=== PATIENT | male | born 1960 | race Caucasian/White ===

== ENCOUNTER 2017-01-12 11:34 | Inpatient (IN) | payer MEDICARE, MEDICAID ==
[2017-01-12] MEDS ORDERED: Sodium Chloride 0.9% 10 ML Syringe FLUSH PRN (11:44)
[2017-01-12 13:01] LABS: CHLORIDE,CL 109 mmol/L (98-107); SODIUM,NA 145 mmol/L (136-145)
[2017-01-12] MEDS ORDERED: Levofloxacin/Dextrose 5%-Water 500 MG in Premix Bag 1 BAG IV ONE (13:39)
[2017-01-12] MEDS ORDERED: metroNIDAZOLE/Normal Saline 500 MG in Premix Bag 1 BAG IV ONE (13:39)
[2017-01-12] MEDS ORDERED: Enoxaparin 40 MG/0.4 ML Syringe SUBCUT SCH (16:00)
[2017-01-12] MEDS ORDERED: Acetaminophen 325 MG Tab PO PRN (16:29)
[2017-01-12] MEDS ORDERED: [UNRECOGNIZED DRUG - OTHER] PO PRN (16:29)
[2017-01-12] MEDS ORDERED: Sodium Chloride 0.65% Nasal Spray 45 ML Bottle NASBOTH PRN (16:29)
[2017-01-12] MEDS ORDERED: guaiFENesin 100 MG/5 ML Soln 10 ML UD Cup PO PRN (16:29)
[2017-01-12] MEDS ORDERED: Simethicone 80 MG Tab.Chew PO PRN (16:29)
[2017-01-12] MEDS ORDERED: Loperamide 2 MG Cap PO SCH (16:30)
[2017-01-12] MEDS: LORazepam 0.5 MG Tab PO SCH (18:08)
[2017-01-12] MEDS: Albuterol/Ipratropium 3.0-0.5 MG/3 ML Neb Soln NEB SCH (18:08)
[2017-01-12] MEDS: metroNIDAZOLE/Normal Saline 500 MG in Premix Bag 1 BAG IV SCH (19:50)
[2017-01-12] MEDS ORDERED: TRAZODONE HCL 200 MG PO SCH (20:00)
[2017-01-12] MEDS ORDERED: PILOCARPINE HCL 5 MG PO SCH (20:00)
[2017-01-12] MEDS: Topiramate 50 MG Tab PO SCH (20:04)
[2017-01-12] MEDS: Donepezil 10 MG Tab PO SCH (20:05)
[2017-01-12] MEDS: OLANZapine 10 MG Tab PO SCH (20:06)
[2017-01-12] MEDS: Montelukast 10 MG Tab PO SCH (20:06)
[2017-01-12] MEDS: traZODone 50 MG Tab PO SCH (20:07)
[2017-01-12] MEDS: Loratadine 10 MG Tab PO SCH (20:07)
[2017-01-12] MEDS: Acetaminophen 500 MG Tab PO SCH (20:08)
[2017-01-12] MEDS: Enoxaparin 40 MG/0.4 ML Syringe SUBCUT SCH (20:10)
--- NOTE | 2017-01-12 23:16 | HP ---
REASON FOR ADMISSION: Suspected aspiration. HISTORY OF PRESENT ILLNESS: A 56-year-old white male, resident of the Special Care Unit at the [facility], was found by staff to be refusing to ambulate, cold and clammy to touch, and shaky. Family who is with him when I assessed him stated he had collapse and was cold and clammy and not feeling well. The patient is nonverbal due to Down syndrome. He is unable to answer any questions. History taken from longterm records and family members were present. The patient has a history of aspiration pneumonia. He was reported to be in the hospital [facility] 5 years ago in the ICU for aspiration pneumonia and that led his admission to the Special Care Unit at the [facility]. PAST MEDICAL HISTORY: His other diagnoses include COPD, congenital mitral insufficiency, allergic rhinitis, Down syndrome, generalized anxiety disorder, major depressive disorder, obsessive-compulsive disorder, Alzheimer's, chronic sinusitis, dementia, dysphagia, GERD, impulse disorder, obesity, orthostatic hypotension, and unspecified convulsions. MEDICATIONS: As listed from the [facility] are saline nasal spray p.r.n., ranitidine 150 mg daily, Zyprexa 10 mg b.i.d., Tylenol p.r.n., trazodone 200 mg at bedtime, triamcinolone 0.1% b.i.d. p.r.n., topiramate 100 mg daily, pilocarpine 5 mg t.i.d., Singulair 10 mg at bedtime, guaifenesin as directed, potassium 20 mEq b.i.d., multivitamin daily, fish oil daily, furosemide 20 mg daily, simethicone 80 mg q.i.d. p.o., DuoNeb daily, vitamin D complex, loratadine 10 mg daily, calcium with vitamin D 1 b.i.d., lorazepam 0.5 mg b.i.d., Aricept 10 mg daily, Imodium as directed, Flonase nasal spray daily, Chloraseptic throat spray q.4 h. p.r.n., clotrimazole topical, Biotene oral balance b.i.d. p.r.n., bacitracin p.r.n. ALLERGIES: Penicillin. Family reports that they are unaware of what the reaction was, as he was about 4 years old when he had the reaction. SOCIAL HISTORY: He has had exposure to smoking during his life. REVIEW OF SYSTEMS: Not obtainable as the patient is nonverbal. PHYSICAL EXAMINATION: General: He is alert, lying in bed. Vital Signs: Temperature 97.2, pulse is 60, BP is 98/55, respiratory rate 18, and O2 sats 97% on room air. HEENT: Pupils unremarkable. TMs negative. Throat; tongue is unremarkable. Neck: Supple. No adenopathy noted. Heart: Regular rate and rhythm. Lungs: Occasional wheeze and rhonchi. Abdomen: Obese, nontender. No masses palpable. No hepatosplenomegaly noted. Extremities: Warm and dry. No edema noted. Neurologic: Unable to follow commands. LABORATORY DATA: White count 11.1, hemoglobin 14.7. INR 0.9. Potassium 5.3, sodium 145, and creatinine 1.2. Lactic acid elevated at 2.9. LFTs are normal. Troponin was negative. CK was negative. Albumin low at 3.1. Chest x-ray, portable, no acute findings. The patient was assessed by the ED provider, BEE Virgen. He was administered Levaquin and Flagyl for coverage of presumed aspiration pneumonia. Medications shows because of his penicillin allergy. These were given prior to arrival on the floor. ASSESSMENT: 1. Presumed aspiration pneumonia. 2. Down syndrome. 3. Chronic obstructive pulmonary disease. PLAN: The patient will be placed on acute care status, anticipate 48- to 72- hour stay. We will continue Levaquin 500 mg q.24 hours and metronidazole 500 mg q.8 hours for coverage for aspiration pneumonia. We will increase his DuoNeb to q.6 hours. Continue on most of his home medications except hold all of his topicals and some of his duplicate guaifenesin orders. Repeat lab in the morning. Monitor his O2 sats. Family requests DNR/DNI status. Dr. Mary Ann Madera is his primary provider and she will assume care in the morning again. FM: 01/12/2017 16:51:10 MODL: 01/12/2017 17:58:34 /[id number]
--- NOTE | 2017-01-13 00:07 | ER ---
Date of Service: 01/12/2017 SUBJECTIVE: Jer presents to the emergency room via ambulance. The patient is a resident at the [facility] and suffers from severe Down syndrome. Family states that the patient has been experiencing increased weakness and has been ambulating less. They also noted that the patient was cyanotic around the lips and appeared to be experiencing some increased work of breathing. The patient has a history of aspiration pneumonia. Staff states that symptoms started earlier today. PAST MEDICAL HISTORY: 1. Down syndrome. 2. COPD. 3. Congenital mitral valve insufficiency. 4. Allergic rhinitis. 5. Generalized anxiety disorder. 6. Major depressive disorder. 7. Obsessive-compulsive disorder. 8. Alzheimer's. 9. Chronic sinusitis. 10.Dementia. 11.Dysphagia. 12.GERD. 13.Impulse disorder. 14.Obesity. 15.History of orthostatic hypotension. 16.History of seizure disorder. MEDICATIONS: 1. Ranitidine 150 mg daily. 2. Zyprexa 10 mg p.o. b.i.d. 3. Tylenol p.r.n. 4. Trazodone. 5. Pilocarpine 5 mg t.i.d. 6. Singulair 10 mg at bedtime. 7. Guaifenesin as directed. 8. Potassium 20 mEq b.i.d. 9. Multivitamin daily. 10.Fish oil daily. 11.Furosemide 20 mg daily. 12.Simethicone 80 mg q.i.d. p.o. 13.DuoNebs daily. 14.Vitamin D complex. 15.Loratadine 10 mg daily. 16.Vitamin D 1 twice daily. 17.Lorazepam 0.5 mg b.i.d. 18.Aricept 10 mg daily. 19.Imodium as needed. 20.Flonase nasal spray. 21.Chloraseptic throat spray. ALLERGIES: Penicillin, unknown what type of reaction happens when exposed to penicillin. REVIEW OF SYSTEMS: The patient is nonverbal. Please see history of present illness. PHYSICAL EXAMINATION: General: This is a 56-year-old male patient, in no acute distress. Vital Signs: Blood pressure is 125/73, heart rate is 70, temperature is 36.3, O2 saturation is 92%, and respiratory rate is 18. Skin: Warm, pink, and dry. HEENT: Mouth, oral mucosa is moist. Unable to visualize his hypopharynx due to noncompliance of the patient. Lungs: Diminished with rhonchi in the mid-lung lopez. Heart: Regular rate and rhythm. Abdomen: Soft, obese, nontender. There are no masses noted. There is no hepatosplenomegaly noted. Extremities: Without edema. Neurologic: The patient is alert. He is interactive with his sister and staff. Again, he is chronically nonverbal. LABORATORY STUDIES: PA and lateral portable chest x-rays were obtained. There was no evidence of any obvious infiltrate noted. CBC was obtained. WBC is 11.1, hemoglobin is 14.7, and platelets are 218. Coag PT is 9.5. INR is 0.9. Chemistry: Sodium is 145, potassium is 5.3, chloride is 109, bicarb is 31, BUN is 20, creatinine is 1.2, and creatinine clearance is 58.93. GFR is greater than 60. Glucose is 86, lactic acid is 2.9, calcium is 8.8, and corrected calcium is 9.52. Total bilirubin is 0.3, AST is 33, ALT is 30, and alkaline phosphatase is 90. CK is 86. Troponin is less than 0.017. C- reactive protein is 0.8. Total protein is 7.1, albumin is 3.1. Blood cultures x2 were obtained and are pending. EMERGENCY ROOM COURSE: IV access was established. The patient was started on Levaquin 500 mg IV x1 here in the ER and was also started on metronidazole 500 mg here in the ER as well. The patient remained hemodynamically stable during stay in the ER. ASSESSMENT: Fever of unknown origin and fatigue likely secondary to aspiration pneumonia. PLAN: The patient will be admitted. I did speak with Dr. Adames regarding this patient. He will be admitted acutely. There was no visualized infiltrate on his chest x-ray today; however, this may become evident tomorrow after he received some IV fluids. The patient is a code level 2 with no intubation and no resuscitation. MWK: 01/12/2017 23:27:50 MODL: 01/13/2017 00:01:04 /[id number]
[2017-01-13] MEDS: Albuterol/Ipratropium 3.0-0.5 MG/3 ML Neb Soln NEB SCH ×4 (01:16→18:44)
[2017-01-13] MEDS: metroNIDAZOLE/Normal Saline 500 MG in Premix Bag 1 BAG IV SCH ×3 (03:46→20:01)
[2017-01-13] MEDS ORDERED: Sodium Chloride 0.9% 1,000 ML IV SCH (04:00)
[2017-01-13 06:57] LABS: CHLORIDE,CL 107 mmol/L (98-107); SODIUM,NA 142 mmol/L (136-145)
[2017-01-13] MEDS ORDERED: Loratadine 10 MG Tab PO SCH (08:00)
[2017-01-13] MEDS ORDERED: TOPIRAMATE 100 MG PO SCH (08:00)
--- NOTE | 2017-01-13 08:52 | PN ---
Progress Note for PETAR KAY Date: 01/13/2017 Room #: VM.215 SUBJECTIVE: Hospital day #2 for a 56-year-old with Down syndrome admitted with aspiration pneumonia. His white count has normalized. He has been afebrile. He is sleeping comfortably this morning. He has not been coughing, O2 saturations have remained above 90% on room air. Otherwise, he has not had a urine sample collected yet. He is voiding but incontinent. OBJECTIVE: Vital signs: His temperature is 98.5, pulse 77, blood pressure 104/65, respiratory rate 20, O2 92% on room air. He has been afebrile. General: He is in no acute distress. He is resting, but he does open his eyes and become alert to voice. He is nonverbal. Cardiac: His heart regular rate and rhythm. Respiratory: Lungs sounds are clear to auscultation over the right lung. He does have rhonchi over the left base. Extremities: Warm and dry. No edema. LABORATORY DATA: Lab work reviewed includes a white count of 6.7, hemoglobin 12.6, platelets 203. Sodium 142, potassium 3.8, chloride 107, bicarb 29, BUN 16, creatinine 1.1, calcium 7.8. Lactic acid was 2.9 yesterday. For some reason it has not been repeated today. ASSESSMENT AND PLAN: 1. An episode of aspiration with known history of aspiration pneumonia. He will continue on Levaquin and Flagyl as he is a resident from the [facility]. We will repeat lab work tomorrow. Switch him to over to oral antibiotics if able. Blood cultures so far negative. Sputum has been unable to be collected. 2. Morbid obesity. 3. Chronic obstructive pulmonary disease. He has been on scheduled nebs. He is not wheezing. 4. Down syndrome. 5. History of aspiration. Discuss with the speech therapist. My concern is more for choking. He will assess him today, but I do not think he would be a candidate for a video swallow test. 6. Obsessive-compulsive disorder and anxiety. He is followed by psych. We will continue his medications from the [facility]. 7. Dementia. 8. Orthostatic hypotension. Blood pressures have been under good control. That has mainly been an issue when he is getting Lasix. 9. For deep vein thrombosis prophylaxis, he is on Lovenox. 10.We will cancel the UA. He is not having any symptoms to suggest the UTI and we would only do a catheterization if his postvoid residual is greater than 400. MKA: 01/13/2017 08:25:37 MODL: 01/13/2017 08:37:52 /[id number]
[2017-01-13] MEDS: Multivitamin, Stress Formula with Zinc Tab PO SCH (08:55)
[2017-01-13] MEDS: Famotidine 20 MG Tab PO SCH (08:55)
[2017-01-13] MEDS: Vitamin B Complex Tab.ER PO SCH (08:55)
[2017-01-13] MEDS: Acetaminophen 500 MG Tab PO SCH ×3 (08:56→19:50)
[2017-01-13] MEDS: OLANZapine 10 MG Tab PO SCH ×2 (08:56→19:50)
[2017-01-13] MEDS: LORazepam 0.5 MG Tab PO SCH ×2 (08:56→17:43)
[2017-01-13] MEDS: Fluticasone Propionate Nasal Spray 16 GM Bottle NASBOTH SCH (08:58)
[2017-01-13] MEDS ORDERED: Levofloxacin/Dextrose 5%-Water 500 MG in Premix Bag 1 BAG IV SCH (14:00)
[2017-01-13] MEDS: Enoxaparin 40 MG/0.4 ML Syringe SUBCUT SCH (19:50)
[2017-01-13] MEDS: traZODone 50 MG Tab PO SCH (19:50)
[2017-01-13] MEDS: Topiramate 50 MG Tab PO SCH (19:50)
[2017-01-13] MEDS: Loratadine 10 MG Tab PO SCH (19:50)
[2017-01-13] MEDS: Montelukast 10 MG Tab PO SCH (19:50)
[2017-01-13] MEDS: Donepezil 10 MG Tab PO SCH (19:51)
[2017-01-13] MEDS ORDERED: Levofloxacin 500 MG Tab PO SCH (20:45)
[2017-01-13] MEDS: metroNIDAZOLE 500 MG Tab PO SCH (21:32)
[2017-01-14] MEDS: Albuterol/Ipratropium 3.0-0.5 MG/3 ML Neb Soln NEB SCH ×2 (00:58→07:04)
[2017-01-14 05:05] VITALS: BP 118/52
[2017-01-14] MEDS: metroNIDAZOLE 500 MG Tab PO SCH (05:05)
[2017-01-14 07:00] LABS: CHLORIDE,CL 108 mmol/L (98-107); SODIUM,NA 144 mmol/L (136-145)
[2017-01-14] MEDS: OLANZapine 10 MG Tab PO SCH (07:30)
[2017-01-14] MEDS: Vitamin B Complex Tab.ER PO SCH (07:30)
[2017-01-14] MEDS: LORazepam 0.5 MG Tab PO SCH (07:30)
[2017-01-14] MEDS: Multivitamin, Stress Formula with Zinc Tab PO SCH (07:31)
[2017-01-14] MEDS: Fluticasone Propionate Nasal Spray 16 GM Bottle NASBOTH SCH (07:31)
[2017-01-14] MEDS: Famotidine 20 MG Tab PO SCH (07:31)
[2017-01-14] MEDS: Acetaminophen 500 MG Tab PO SCH (07:31)
[2017-01-14] MEDS ORDERED: Levofloxacin 500 MG Tab PO SCH ×2 (14:00→22:00)
--- NOTE | 2017-01-15 01:43 | DISCH ---
PRIMARY DISCHARGE DIAGNOSES: 1. An episode of aspiration with concern for aspiration pneumonia. Initial x- rays were negative and there was no fevers, white count did normalize. He did receive IV Levaquin and Flagyl until the night prior to discharge when his IV came out and he was placed on oral agents. Blood cultures were negative. Sputum cultures were unable to be obtained. 2. Morbid obesity. 3. Chronic obstructive pulmonary disease, chronic and stable without exacerbation. 4. Down syndrome. 5. Previous history of aspiration. Speech Therapy saw the patient, recommended with pureed honey thickened diet and no further speech therapy recommended. 6. Obsessive compulsive disorder with anxiety. 7. Dementia. 8. Orthostatic hypotension at times. Lasix is always held if blood pressures are low and he did not receive any Lasix here. 9. Mild hyperkalemia on admission, improved with holding potassium. 10.Deep vein thrombosis prophylaxis. He did receive Lovenox. REASON FOR ADMISSION: On the date of admission, this 56-year-old resident of [facility] was brought down to the hospital. He had fallen. He was unable to get up. Family was concerned that he had aspirated. He otherwise had not been coughing that much during his hospital stay. His O2 saturations remained above 90% on room air except for when he was sleeping they did dip down to 87%. He very likely does have sleep apnea given his obesity. Therefore oxygen was recommended to be used at night if he will keep it on. His vitals were monitored throughout his stay. They were stable. He was pleasant. He had no behaviors. DISCHARGE PLANS/INSTRUCTION: He is going back to [facility]. He will follow up with Dr. Madera on rounds next week. No lab work will be due. He will resume the same medications, but potassium will be decreased to once daily. He will have Flagyl 3 times a day for another 4 days. DISCHARGE PHYSICAL EXAMINATION: Vital Signs: Include a temperature 98.3, pulse 56, blood pressure 121/58, respiratory rate 16, and O2 92% on room air. General: He is in no acute distress. Heart: Regular rate and rhythm. Lungs: Sounds are clear to auscultation today, bilaterally without crackles or wheezes. Extremities: Warm and dry. It should be noted that newly developed yesterday were some bruising over the right second, third, and fourth toes. He also had some swelling to the right foot. He appeared to be in just mild pain with palpation of this area. There was no deformity. The patient is nonverbal so it is possible that during his fall, he did injure the feet. Otherwise, on discharge, the right foot x-ray is pending. If there appear to be any fractures, his weightbearing status will be changed if needed otherwise if no fractures bones, the patient will be able to ambulate as tolerated. MKA: 01/14/2017 08:33:01 MODL: 01/14/2017 16:16:50 /[id number]
== END 2017-01-14 09:02 | DRG 178 ==
LOC: VM.ED 11:34 → VM.MS 13:41
PROVIDERS: ADMIT Family Medicine; ATTEND Internal Medicine
DX: J69.0 Pneumonitis due to inhalation of food and vomit (principal); R50.9 Fever, unspecified; R53.1 Weakness; Q23.3 Congenital mitral insufficiency; Z68.42 Body mass index [BMI] 45.0-49.9, adult; Q24.8 Other specified congenital malformations of heart; Q90.9 Down syndrome, unspecified; J44.9 Chronic obstructive pulmonary disease, unspecified; F41.9 Anxiety disorder, unspecified; F42.9 Obsessive-compulsive disorder, unspecified; F32.9 Major depressive disorder, single episode, unspecified; G30.9 Alzheimer's disease, unspecified; E66.9 Obesity, unspecified; F02.80 Dementia in other diseases classified elsewhere, unspecified severity, without behavioral disturbance, psychotic disturbance, mood disturbance, and anxiety; R13.10 Dysphagia, unspecified; G40.909 Epilepsy, unspecified, not intractable, without status epilepticus; Z79.899 Other long term (current) drug therapy; J32.9 Chronic sinusitis, unspecified; K21.9 Gastro-esophageal reflux disease without esophagitis; R56.9 Unspecified convulsions; Z66 Do not resuscitate; Z91.19 Patient's noncompliance with other medical treatment and regimen; E66.01 Morbid (severe) obesity due to excess calories; E87.5 Hyperkalemia; I95.1 Orthostatic hypotension; M79.89 Other specified soft tissue disorders
CPT/HCPCS: 36415; 71010; 73620-RT; 80048; 80053; 82550; 83605; 84484; 85025; 85610; 86140; 87040; 92526-GN; 92610-GN; 94640-76; 96374; 99284-GF; 99285; A9270-GY; J1650; J1956

== ENCOUNTER 2017-01-29 13:25 | Emergency (ER) | payer MEDICARE, MEDICAID ==
--- NOTE | 2017-01-29 14:01 | EDM.PDOC ---
ED HPI GENERAL MEDICAL PROBLEM - General Chief Complaint: General Stated Complaint: ER Time Seen by Provider: 01/29/17 13:34 Source of Information: Reports: Family, Group Home Records, Provider, RN, RN Notes Reviewed History Limitations: Reports: No Limitations - History of Present Illness INITIAL COMMENTS - FREE TEXT/NARRATIVE: Patient is brought to the ED at [facility] with concerns of hypotension, poor appetite, and increasing lethargy. Patient was schedule to see a provider at [facility]. The provider at [facility] felt the patient was too ill appearing to be seen in the clinic, therefore; patient was brought to the ED. The [place] provider states they were unable to get a decent blood pressure after multiple attempts. Patient appeared "dusky" looking and extremities were cool. Patient is non-communicative due to advanced dementia and Down's Syndrome. Onset: Unknown/Unsure - Related Data Allergies Allergy/AdvReac Type Severity Reaction Status Date / Time Penicillins Allergy Cannot Verified 01/29/17 13:42 Remember Home Meds: Home Meds Acetaminophen 1,000 mg PO TID MDD 3 gram 01/12/17 [History] Acetaminophen 650 mg PO DAILY PRN 01/12/17 [History] Albuterol/Ipratropium [DuoNeb 3.0-0.5 MG/3 ML] 3 ml NEB DAILY 01/12/17 [History] Bacitracin 1 applic TOP DAILY PRN 01/12/17 [History] Calcium Citrate/Vitamin D3 [Calcium Citrate + D] 1 tab PO BID 01/12/17 [History] Clotrimazole 1 applic TP BID PRN 01/12/17 [History] Donepezil HCl [Aricept] 10 mg PO DAILY 01/12/17 [History] Fish Oil/[place]-3 Fatty Acids [Fish Oil 1,000 MG] 1 gram PO DAILY 01/12/17 [ History] Fluticasone Propionate [Flonase] 1 spray NASBOTH DAILY 01/12/17 [History] Furosemide [Lasix] 20 mg PO DAILY 01/12/17 [History] LORazepam [Ativan] 0.5 mg PO BID 01/12/17 [History] Lactoperoxi/Gluc Oxid/Pot Thio [Biotene Oralbalance Gel] 1 applic PO BID PRN [History] Loperamide [Imodium AD] 4 mg PO ASDIRECTED MDD 4 tabs 01/12/17 [History] Loratadine [Claritin] 10 mg PO DAILY 01/12/17 [History] Montelukast [Singulair] 10 mg PO BEDTIME 01/12/17 [History] Multivitamin [Multivitamins] 1 each PO DAILY 01/12/17 [History] OLANZapine [ZyPREXA] 10 mg PO BID 01/12/17 [History] Phenol [Chloraseptic Throat Hillister] 2 spray MUCMEM Q4H PRN 01/12/17 [History] Pilocarpine HCl [Salagen] 5 mg PO TID 01/12/17 [History] Ranitidine [Zantac] 150 mg PO DAILY 01/12/17 [History] Simethicone [Gas Relief 80] 80 mg PO QID PRN 01/12/17 [History] Sodium Chloride [Saline Nasal Hillister] 1 spray NASBOTH ASDIRECTED PRN 01/12/17 [ History] Sodium Chloride [Saline Nasal Hillister] 1 spray NASBOTH Q6H PRN 01/12/17 [History] Topiramate [Topamax] 100 mg PO DAILY 01/12/17 [History] Triamcinolone Acetonide [Triamcinolone Acetonide 0.1% Crm] 1 applic TOP BID PRN 01/12/17 [History] Vitamin B Complex [B Complex] 1 each PO DAILY 01/12/17 [History] guaiFENesin 10 ml PO Q4H PRN 01/12/17 [History] guaiFENesin [Guaifenesin] 200 mg PO Q4H PRN 01/12/17 [History] guaiFENesin [Mucinex] 600 mg PO Q12H PRN 01/12/17 [History] traZODone HCl [Trazodone HCl] 200 mg PO DAILY 01/12/17 [History] Potassium Chloride [Klor-Con M20] 20 meq PO DAILY #0 01/14/17 [Rx] metroNIDAZOLE [Flagyl] 500 mg PO Q8H #12 tablet 01/14/17 [Rx] Past Medical History HEENT History: Reports: Allergic Rhinitis, Sinusitis Cardiovascular History: Reports: Other (See Below) Other Cardiovascular History: edema, mitral insufficiency, orthostatic hypotension, Respiratory History: Reports: COPD Gastrointestinal History: Reports: GERD, Other (See Below) Other Gastrointestinal History: dysphagia, Neurological History: Reports: Other (See Below) Other Neuro History: convulsions Psychiatric History: Reports: Alzheimers Disease, Anxiety, Dementia, Depression , Developmental Delay, OCD, Other (See Below) Other Psychiatric History: down syndrome Endocrine/Metabolic History: Reports: Obesity/BMI 30+ Social & Family History - Family History Family Medical History: Noncontributory - Tobacco Use Smoking Status *Q: Never Smoker Tobacco Use Within Last Twelve Months: No - Caffeine Use Caffeine Use: Reports: None - Alcohol Use Alcohol Use History: No Alcohol Use in Last Twelve Months: No - Recreational Drug Use Recreational Drug Use: No - Sexual History Sexual History: Reports: None - Living Situation & Occupation Living situation: Reports: Single, Extended Care Facility Occupation: Disabled ED ROS GENERAL - Review of Systems Review Of Systems: ROS reveals no pertinent complaints other than HPI. ED EXAM, GENERAL - Physical Exam Exam: See Below Exam Limited By: No Limitations General Appearance: Alert, No Apparent Distress, Obese Head: Atraumatic, Normocephalic Neck: Supple Respiratory/Chest: No Respiratory Distress, Lungs Clear, Normal Breath Sounds Cardiovascular: Normal Peripheral Pulses, Regular Rate, Rhythm Peripheral Pulses: 2+: Radial (L), Radial (R) GI/Abdominal: Soft, Non-Tender, Abnormal Bowel Sounds (Hypoactive) Extremities: Pedal Edema Neurological: Alert Skin Exam: Warm, Dry, Intact, Normal Color, No Rash Course - Vital Signs Last Recorded V/S: Last Vital Signs Temp 36.0 C 01/29/17 13:30 Pulse 55 L 01/29/17 13:30 Resp 20 01/29/17 13:30 BP 121/55 L 01/29/17 13:30 Pulse Ox 93 L 01/29/17 13:30 - Orders/Labs/Meds Orders: Active Orders 24 hr Category Date Time Status Chest 1V Frontal [CR] Stat Exams 01/29/17 13:40 Taken Sodium Chloride 0.9% [Normal Saline] 1,000 ml Med 01/29/17 14:28 Active IV ONETIME Sodium Chloride 0.9% [Saline Flush] Med 01/29/17 14:27 Active 10 ml FLUSH ASDIRECTED PRN Peripheral IV Insertion Adult [OM.PC] Routine Oth 01/29/17 14:27 Ordered Medication Orders Sodium Chloride (Normal Saline) 1,000 mls @ 999 mls/hr IV ONETIME ONE Stop: 01/29/17 15:28 Last Admin: 01/29/17 14:47 Dose: 999 mls/hr Sodium Chloride (Saline Flush) 10 ml FLUSH ASDIRECTED PRN PRN Reason: Keep Vein Open Labs: Laboratory Tests 01/29/17 01/29/17 01/29/17 Range/Units 14:07 14:07 14:07 WBC 6.3 (4.0-10.0) x10^3/uL RBC 4.32 L (4.5-6.0) x10^6/uL Hgb 14.7 D (14.0-18.0) g/dL Hct 44.6 (40.0-52.0) % MCV 103.2 H (78.0-93.0) fL MCH 34.0 H (26.0-32.0) pg MCHC 33.0 (32.0-36.0) g/dL RDW Coeff of Annalee 14.0 (10.0-15.0) % Plt Count 183 (130-400) x10^3/uL Neut % (Auto) 62.9 (50.0-80.0) % Lymph % (Auto) 22.0 L (25.0-50.0) % [place]imer % (Auto) 12.3 H (2.0-11.0) % Eos % (Auto) 1.8 (0.0-4.0) % Baso % (Auto) 1.0 (0.2-1.2) % Sodium 142 (136-145) mmol/L Potassium 4.2 (3.5-5.1) mmol/L Chloride 104 (98-107) mmol/L Carbon Dioxide 32 (21-32) mmol/L BUN 19 H (7-18) mg/dL Creatinine 1.0 (0.70-1.30) mg/dL Est Cr Clr Drug Dosing TNP Estimated GFR (MDRD) > 60 Glucose 94 (74-106) mg/dL Lactic Acid 1.6 (0.4-2.0) mmol/L Calcium 9.3 (8.5-10.1) mg/dL Phosphorus 4.8 H (2.6-4.7) mg/dL Magnesium 2.0 (1.8-2.4) mg/dL C-Reactive Protein 9.8 H (<=0.9) mg/dL Meds: Medications Generic Name Dose Route Start Last Admin Trade Name Freq PRN Reason Stop Dose Admin Sodium Chloride 1,000 mls @ 999 mls/hr 01/29/17 14:28 01/29/17 14:47 Normal Saline IV 01/29/17 15:28 999 mls/hr ONETIME ONE Administration Sodium Chloride 10 ml 01/29/17 14:27 Saline Flush FLUSH ASDIRECTED PRN Keep Vein Open - Radiology Interpretation Free Text/Narrative:: CXR: Mild congestive heart failure; Hypoinflation See scanned report in EMR Departure - Departure Time of Disposition: 15:21 Disposition: Home, Self-Care 01 Condition: Good Clinical Impression: Dehydration, moderate - Discharge Information Instructions: Rehydration, Adult, Dehydration, Adult Referrals: Mary Ann Madera DO [Primary Care Provider] - Forms: ED Department Discharge Additional Instructions: 1. Stay well hydrated and rest 2. Follow up with your Primary next week for a recheck 3. Encourage using cough syrup already ordered on home medication list - Problem List Review Problem List Initiated/Reviewed/Updated: Yes - My Orders Last 24 Hours: My Active Orders 01/29/17 13:40 Chest 1V Frontal [CR] Stat 01/29/17 14:27 Sodium Chloride 0.9% [Saline Flush] 10 ml FLUSH ASDIRECTED PRN Peripheral IV Insertion Adult [OM.PC] Routine 01/29/17 14:28 Sodium Chloride 0.9% [Normal Saline] 1,000 ml IV ONETIME - Assessment/Plan Last 24 Hours: My Active Orders 01/29/17 13:40 Chest 1V Frontal [CR] Stat 01/29/17 14:27 Sodium Chloride 0.9% [Saline Flush] 10 ml FLUSH ASDIRECTED PRN Peripheral IV Insertion Adult [OM.PC] Routine 01/29/17 14:28 Sodium Chloride 0.9% [Normal Saline] 1,000 ml IV ONETIME
[2017-01-29 14:25] VITALS: BP 121/55
[2017-01-29] MEDS ORDERED: Sodium Chloride 0.9% 10 ML Syringe FLUSH PRN (14:27)
[2017-01-29] MEDS ORDERED: Sodium Chloride 0.9% 1,000 ML IV ONE (14:28)
[2017-01-29 14:32] LABS: CHLORIDE,CL 104 mmol/L (98-107); SODIUM,NA 142 mmol/L (136-145)
== END 2017-01-29 16:15 | disposition home or self-care (01) ==
LOC: VM.ED 13:25
DX: E86.0 Dehydration (principal); J44.9 Chronic obstructive pulmonary disease, unspecified; K21.9 Gastro-esophageal reflux disease without esophagitis; F41.9 Anxiety disorder, unspecified; F32.9 Major depressive disorder, single episode, unspecified; E66.9 Obesity, unspecified; Z88.0 Allergy status to penicillin; Z79.899 Other long term (current) drug therapy
CPT/HCPCS: 36415; 71010; 80048; 83605; 83735; 84100; 85025; 86140; 96360; 99284; 99285; J7030

== ENCOUNTER 2017-01-31 13:23 | Emergency (ER) | payer MEDICARE, MEDICAID ==
[2017-01-31 14:56] LABS: CHLORIDE,CL 106 mmol/L (98-107); SODIUM,NA 145 mmol/L (136-145)
[2017-01-31 15:28] VITALS: BP 115/46
--- NOTE | 2017-02-03 07:58 | ER ---
Date of Service: 01/31/2017 SUBJECTIVE: Jer presents to the emergency room with decreased O2 saturation and fatigue. The patient has been evaluated in the emergency room numerous times in the past 2 weeks for concerns of aspiration pneumonia. He was seen by me on approximately the 12 of January and was treated for aspiration pneumonia. He subsequently presented back to the emergency room approximately 2 days ago and was seen by Praneeth Alcaraz due to cyanosis and decreased level of consciousness. The patient's sister states that she is concerned that he is sleeping a lot through the day and the night. She states that he is lethargic and his appetite is poor. The patient does have a history of dementia and severe Down syndrome and is unable to communicate verbally. PAST MEDICAL HISTORY: 1. Mitral valve insufficiency. 2. Orthostatic hypotension. 3. GERD. 4. Obesity. 5. Seizure disorder. 6. Alzheimer disease. 7. Anxiety. 8. Developmental delay. 9. Down syndrome. 10.OCD. MEDICATIONS: 1. Trazodone 200 mg daily. 2. Mucinex 600 mg p.o. q.12 hours p.r.n. 3. Vitamin B complex 1 daily. 4. Topamax 100 mg daily. 5. Ranitidine 150 mg p.o. daily. 6. Potassium chloride 20 mEq daily. 7. Pilocarpine 5 mg p.o. t.i.d. 8. Zyprexa 10 mg p.o. b.i.d. 9. Multivitamin 1 daily. 10.Singulair 10 mg at bedtime. 11.Claritin 10 mg p.o. daily. 12.Imodium A-D 4 mg p.o. as directed, max dose 4 tablets daily. 13.Ativan 0.5 mg p.o. b.i.d. 14.Furosemide 20 mg p.o. daily. 15.Flonase 1 spray in each naris daily. 16.[place]-3 fish oil 1 g p.o. daily. 17.Aricept 10 mg p.o. daily. 18.Acetaminophen 1000 mg p.o. t.i.d. max dose 3 g per day. 19.DuoNeb 1 daily. ALLERGIES: Penicillin. REVIEW OF SYSTEMS: Unobtainable. PHYSICAL EXAMINATION: General: This is a 56-year-old male patient, in no acute distress. Vital Signs: Blood pressure is 122/55, heart rate is 55, temperature is 34.9, respiratory rate 16, O2 saturation is 96% on room air. Skin: Warm, pink, and dry. HEENT: Mouth, oral mucosa is moist. Lungs: Diminished with some faint crackles in the bases. Heart: Regular rate and rhythm. Abdomen: Soft, obese, and nontender. There are no masses noted. There is no hepatosplenomegaly noted. Extremities: Without edema. Neurologic: The patient is alert and interactive with his family. He does make noises in an attempt to communicate with the family and caregivers. He does not appear to be in any acute distress. He is not experiencing any decreased level of consciousness at this time. LABORATORY DATA: One-view chest x-ray was obtained. There was no evidence of any acute infiltrate. There was evidence of a possible mild failure pattern on the 1-view anterior posterior film. Hematology, WBC is 6.2, hemoglobin is 14.2, platelets are 183. Coags, PT is 9.8, INR is 0.9. Chemistry, sodium is 145, potassium is 4.2, chloride is 106, bicarb is 32, BUN is 17, creatinine is 1.1. GFR is greater than 60. Glucose is 99, lactic acid mildly elevated at 2.2, calcium is 9.1, corrected calcium is 9.98, total bilirubin is 0.3, AST is 21, ALT 18, alkaline phosphatase is 91. C- reactive protein is 6.7. BNP is 237. Total protein is 7.0, albumin is 2.9. ASSESSMENT: 1. Decreased level of consciousness according to staff and family. 2. History of cyanosis. PLAN: We will start to increase the patient's Lasix to 40 mg once daily for 10 days. We will also fluid restrict him to 1500 mL of fluid daily. I did decrease his trazodone to 150 mg from 200 mg to see if this helps with his wakefulness. The patient's sister states again that when he receives his psychotropic medications before bedtime, he is extremely fatigued throughout the night and into the next day. Advised them to follow up in the clinic in the next 7 to 10 days. All questions were answered. MWK: 01/31/2017 16:32:01 MODL: 01/31/2017 21:06:05 /[id number]
== END 2017-01-31 16:30 ==
LOC: VM.ED 13:23
DX: R53.83 Other fatigue (principal); R41.0 Disorientation, unspecified; R23.0 Cyanosis; K21.9 Gastro-esophageal reflux disease without esophagitis; G40.909 Epilepsy, unspecified, not intractable, without status epilepticus; E66.9 Obesity, unspecified; G30.9 Alzheimer's disease, unspecified; Z79.899 Other long term (current) drug therapy; Z88.0 Allergy status to penicillin; Z68.42 Body mass index [BMI] 45.0-49.9, adult
CPT/HCPCS: 36415; 71010; 80053; 83605; 83880; 85025; 85610; 86140; 87040; 99283-GF; 99285

== ENCOUNTER 2017-02-10 19:08 | Emergency (ER) | payer MEDICARE, MEDICAID ==
[2017-02-10] MEDS ORDERED: Sodium Chloride 0.9% 10 ML Syringe FLUSH PRN (19:15)
[2017-02-10] MEDS ORDERED: Levalbuterol HCl 1.25 MG/0.5 ML Neb NEB ONE ×2 (19:26→20:33)
[2017-02-10] MEDS ORDERED: methylPREDNISolone Sodium Succinate 125 MG/2 ML SDV IVPUSH ONE (19:26)
[2017-02-10] MEDS ORDERED: Furosemide 20 MG/2 ML VIAL IV ONE (19:53)
--- NOTE | 2017-02-10 20:23 | EDM.PDOC ---
ED HPI GENERAL MEDICAL PROBLEM - General Chief Complaint: Respiratory Problem Stated Complaint: SOB; Wheezing Time Seen by Provider: 02/10/17 19:11 Source of Information: Reports: Family, Half-Way Records, RN, RN Notes Reviewed History Limitations: Reports: No Limitations - History of Present Illness INITIAL COMMENTS - FREE TEXT/NARRATIVE: Patient is brought to the emergency room at [facility] by sister with complaints of wheezing, shortness of breath. The patient is a resident of a prison. The patient has a history of Down syndrome. The patient's sister states that the patient was on Lasix but this was stopped 10 days ago by his PCP. The patient's sister states that the patient's breathing has progressively gotten worse over the past week. The patient seems to have a wet cough. The patient has seemed more agitated. The patient's sister states that she has noticed increased swelling of both lower extremities. Patient has had a poor appetite. The sister states the patient looks pale and somewhat blue around the lips. Onset: Gradual - Related Data Allergies Allergy/AdvReac Type Severity Reaction Status Date / Time Penicillins Allergy Cannot Verified 02/10/17 20:49 Remember Home Meds: Home Meds Acetaminophen 1,000 mg PO TID MDD 3 gram 01/12/17 [History] Acetaminophen 650 mg PO DAILY PRN 01/12/17 [History] Albuterol/Ipratropium [DuoNeb 3.0-0.5 MG/3 ML] 3 ml NEB DAILY 01/12/17 [History] Bacitracin 1 applic TOP DAILY PRN 01/12/17 [History] Calcium Citrate/Vitamin D3 [Calcium Citrate + D] 1 tab PO BID 01/12/17 [History] Clotrimazole 1 applic TP BID PRN 01/12/17 [History] Donepezil HCl [Aricept] 10 mg PO DAILY 01/12/17 [History] Fish Oil/[place]-3 Fatty Acids [Fish Oil 1,000 MG] 1 gram PO DAILY 01/12/17 [ History] Fluticasone Propionate [Flonase] 1 spray NASBOTH DAILY 01/12/17 [History] Furosemide [Lasix] 20 mg PO DAILY 01/12/17 [History] LORazepam [Ativan] 0.5 mg PO BID 01/12/17 [History] Lactoperoxi/Gluc Oxid/Pot Thio [Biotene Oralbalance Gel] 1 applic PO BID PRN [History] Loperamide [Imodium AD] 4 mg PO ASDIRECTED MDD 4 tabs 01/12/17 [History] Loratadine [Claritin] 10 mg PO DAILY 01/12/17 [History] Montelukast [Singulair] 10 mg PO BEDTIME 01/12/17 [History] Multivitamin [Multivitamins] 1 each PO DAILY 01/12/17 [History] OLANZapine [ZyPREXA] 10 mg PO BID 01/12/17 [History] Phenol [Chloraseptic Throat [place]] 2 spray MUCMEM Q4H PRN 01/12/17 [History] Pilocarpine HCl [[place]] 5 mg PO TID 01/12/17 [History] Ranitidine [Zantac] 150 mg PO DAILY 01/12/17 [History] Simethicone [Gas Relief 80] 80 mg PO QID PRN 01/12/17 [History] Sodium Chloride [Saline Nasal [place]] 1 spray NASBOTH ASDIRECTED PRN 01/12/17 [ History] Sodium Chloride [Saline Nasal [place]] 1 spray NASBOTH Q6H PRN 01/12/17 [History] Topiramate [Topamax] 100 mg PO DAILY 01/12/17 [History] Triamcinolone Acetonide [Triamcinolone Acetonide 0.1% Crm] 1 applic TOP BID PRN 01/12/17 [History] Vitamin B Complex [B Complex] 1 each PO DAILY 01/12/17 [History] guaiFENesin 10 ml PO Q4H PRN 01/12/17 [History] guaiFENesin [Guaifenesin] 200 mg PO Q4H PRN 01/12/17 [History] guaiFENesin [Mucinex] 600 mg PO Q12H PRN 01/12/17 [History] traZODone HCl [Trazodone HCl] 200 mg PO DAILY 01/12/17 [History] Potassium Chloride [Klor-Con M20] 20 meq PO DAILY #0 01/14/17 [Rx] metroNIDAZOLE [Flagyl] 500 mg PO Q8H #12 tablet 01/14/17 [Rx] Past Medical History HEENT History: Reports: Allergic Rhinitis, Sinusitis Cardiovascular History: Reports: Other (See Below) Other Cardiovascular History: edema, mitral insufficiency, orthostatic hypotension, Respiratory History: Reports: COPD Gastrointestinal History: Reports: GERD, Other (See Below) Other Gastrointestinal History: dysphagia, Neurological History: Reports: Other (See Below) Other Neuro History: convulsions Psychiatric History: Reports: Alzheimers Disease, Anxiety, Dementia, Depression , Developmental Delay, OCD, Other (See Below) Other Psychiatric History: down syndrome Endocrine/Metabolic History: Reports: Obesity/BMI 30+ Social & Family History - Family History Family Medical History: Noncontributory - Tobacco Use Smoking Status *Q: Never Smoker - Caffeine Use Caffeine Use: Reports: None - Recreational Drug Use Recreational Drug Use: No - Sexual History Sexual History: Reports: None - Living Situation & Occupation Living situation: Reports: Single, Extended Care Facility Occupation: Disabled ED ROS GENERAL - Review of Systems Review Of Systems: See Below Constitutional: Reports: Fever, Decreased Appetite Respiratory: Reports: Shortness of Breath, Wheezing, Cough Cardiovascular: Denies: Chest Pain, Palpitations GI/Abdominal: Reports: Nausea, Vomiting. Denies: Abdominal Pain, Diarrhea Skin: Reports: Cyanosis Neurological: Reports: No Symptoms ED EXAM, GENERAL - Physical Exam Exam: See Below Exam Limited By: No Limitations General Appearance: Alert, Mild Distress, Obese Respiratory/Chest: Crackles, Rales, Wheezing Cardiovascular: Normal Peripheral Pulses, Regular Rate, Rhythm, Other (+3 bilateral LE edema) GI/Abdominal: Soft, Non-Tender, Abnormal Bowel Sounds (Hypoactive) Extremities: Pedal Edema Neurological: Alert Skin Exam: Warm, Dry, Intact, Normal Color, No Rash Course - Vital Signs Last Recorded V/S: Last Vital Signs Temp 37.9 C 02/10/17 19:15 Pulse 108 H 02/10/17 19:15 Resp 36 H 02/10/17 19:15 BP 123/58 L 02/10/17 19:15 Pulse Ox 78 L 02/10/17 19:15 - Orders/Labs/Meds Orders: Active Orders 24 hr Category Date Time Status RT Post Treatment Assessment [RC] Click to Edit Care 02/10/17 19:26 Active RT Post Treatment Assessment [RC] Click to Edit Care 02/10/17 20:33 Active RT Pre-Treatment Assessment [RC] Click to Edit Care 02/10/17 19:26 Active RT Pre-Treatment Assessment [RC] Click to Edit Care 02/10/17 20:33 Active Chest 1V Frontal [CR] Stat Exams 02/10/17 19:12 Taken CULTURE BLOOD [BC] Stat Lab 02/10/17 20:05 Results CULTURE BLOOD [BC] Stat Lab 02/10/17 20:19 Results Sodium Chloride 0.9% [Saline Flush] Med 02/10/17 19:15 Active 10 ml FLUSH ASDIRECTED PRN Blood Culture x2 Reflex Set [OM.PC] Stat Oth 02/10/17 19:14 Ordered Peripheral IV Insertion Adult [OM.PC] Routine Oth 02/10/17 19:15 Ordered Medication Orders Sodium Chloride (Saline Flush) 10 ml FLUSH ASDIRECTED PRN PRN Reason: Keep Vein Open Labs: Laboratory Tests 02/10/17 02/10/17 02/10/17 Range/Units 20:05 20:05 20:19 WBC 11.6 H (4.0-10.0) x10^3/uL RBC 4.39 L (4.5-6.0) x10^6/uL Hgb 14.9 (14.0-18.0) g/dL Hct 45.3 (40.0-52.0) % MCV 103.2 H (78.0-93.0) fL MCH 33.9 H (26.0-32.0) pg MCHC 32.9 (32.0-36.0) g/dL RDW Coeff of [place] 14.1 (10.0-15.0) % Plt Count 217 (130-400) x10^3/uL Neut % (Auto) 84.1 H (50.0-80.0) % Lymph % (Auto) 9.0 L (25.0-50.0) % [place] % (Auto) 5.4 (2.0-11.0) % Eos % (Auto) 1.1 (0.0-4.0) % Baso % (Auto) 0.4 (0.2-1.2) % Sodium 144 (136-145) mmol/L Potassium 4.0 (3.5-5.1) mmol/L Chloride 107 (98-107) mmol/L Carbon Dioxide 28 (21-32) mmol/L BUN 25 H (7-18) mg/dL Creatinine 1.3 (0.70-1.30) mg/dL Est Cr Clr Drug Dosing TNP Estimated GFR (MDRD) 58 Glucose 118 H (74-106) mg/dL Lactic Acid 2.3 H (0.4-2.0) mmol/L Calcium 8.8 (8.5-10.1) mg/dL Corrected Calcium 9.68 (8.5-10.1) mg/dL Phosphorus 4.6 (2.6-4.7) mg/dL Magnesium 1.7 L (1.8-2.4) mg/dL Total Bilirubin 0.3 (0.2-1.0) mg/dL AST 21 (15-37) U/L ALT 21 (16-63) U/L Alkaline Phosphatase 115 (46-116) U/L C-Reactive Protein 11.0 H (<=0.9) mg/dL B-Natriuretic Peptide 372 H (<=125) pg/mL Total Protein 7.5 (6.4-8.2) g/dL Albumin 2.9 L (3.4-5.0) g/dL Globulin 4.6 Albumin/Globulin Ratio 0.63 Meds: Medications Generic Name Dose Route Start Last Admin Trade Name Freq PRN Reason Stop Dose Admin Sodium Chloride 10 ml 02/10/17 19:15 Saline Flush FLUSH ASDIRECTED PRN Keep Vein Open Discontinued Medications Generic Name Dose Route Start Last Admin Trade Name Freq PRN Reason Stop Dose Admin Furosemide 20 mg 02/10/17 19:53 02/10/17 20:13 Lasix IV 02/10/17 19:54 20 mg ONETIME ONE Administration Levalbuterol HCl 1.25 mg 02/10/17 19:26 02/10/17 19:58 Xopenex NEB 02/10/17 19:27 1.25 mg ONETIME ONE Administration Levalbuterol HCl 1.25 mg 02/10/17 20:33 02/10/17 20:45 Xopenex NEB 02/10/17 20:34 1.25 mg ONETIME ONE Administration Methylprednisolone Sodium Succinate 125 mg 02/10/17 19:26 02/10/17 19:59 Solu-Medrol IVPUSH 02/10/17 19:27 125 mg ONETIME ONE Administration - Radiology Interpretation Free Text/Narrative:: CXR: Extensive bilateral infiltrates, likely edema - see scanned report in EMR Departure - Departure Time of Disposition: 21:28 Disposition: DC/Tfer to Acute Hospital 02 Condition: Fair Clinical Impression: Shortness of breath at rest Acute congestive heart failure Qualifiers: Congestive heart failure type: unspecified congestive heart failure type Qualified Code(s): I50.9 - Heart failure, unspecified Fluid overload Qualifiers: Hypervolemia type: unspecified Qualified Code(s): E87.70 - Fluid overload, unspecified - Discharge Information Forms: Interfacility Transfer [facility] ED Communication - ED Communication Date/Time Date: 02/10/17 Time Called: :26 - Discussed Case With (1) Discussed Case With (1): Admitting Provider (Dr. Vázquez, Hospitalist) - Conversation Summary Admitting Provider Agreed to Patient's Admission: Yes Patient's POA/Guardian Aware of Amendments to Care Plan: Yes Summary Comment: Patient will be transferred to [facility]. Accepting provider is Dr. Vázquez. Report given. All questions answered. Patient will be transferred via ground - Problem List Review Problem List Initiated/Reviewed/Updated: Yes - My Orders Last 24 Hours: My Active Orders 02/10/17 19:12 Chest 1V Frontal [CR] Stat 02/10/17 19:14 Blood Culture x2 Reflex Set [OM.PC] Stat 02/10/17 19:15 Sodium Chloride 0.9% [Saline Flush] 10 ml FLUSH ASDIRECTED PRN Peripheral IV Insertion Adult [OM.PC] Routine 02/10/17 19:26 RT Post Treatment Assessment [RC] Click to Edit RT Pre-Treatment Assessment [RC] Click to Edit 02/10/17 20:05 CULTURE BLOOD [BC] Stat 02/10/17 20:19 CULTURE BLOOD [BC] Stat 02/10/17 20:33 RT Post Treatment Assessment [RC] Click to Edit RT Pre-Treatment Assessment [RC] Click to Edit - Assessment/Plan Last 24 Hours: My Active Orders 02/10/17 19:12 Chest 1V Frontal [CR] Stat 02/10/17 19:14 Blood Culture x2 Reflex Set [OM.PC] Stat 02/10/17 19:15 Sodium Chloride 0.9% [Saline Flush] 10 ml FLUSH ASDIRECTED PRN Peripheral IV Insertion Adult [OM.PC] Routine 02/10/17 19:26 RT Post Treatment Assessment [RC] Click to Edit RT Pre-Treatment Assessment [RC] Click to Edit 02/10/17 20:05 CULTURE BLOOD [BC] Stat 02/10/17 20:19 CULTURE BLOOD [BC] Stat 02/10/17 20:33 RT Post Treatment Assessment [RC] Click to Edit RT Pre-Treatment Assessment [RC] Click to Edit
[2017-02-10 20:53] LABS: CHLORIDE,CL 107 mmol/L (98-107); SODIUM,NA 144 mmol/L (136-145)
[2017-02-10 22:45] VITALS: BP 97/50
== END 2017-02-10 23:00 | disposition short-term general hospital (02) ==
LOC: VM.ED 19:08
DX: I50.9 Heart failure, unspecified (principal); E87.70 Fluid overload, unspecified; K21.9 Gastro-esophageal reflux disease without esophagitis; E66.9 Obesity, unspecified; J44.9 Chronic obstructive pulmonary disease, unspecified; Z88.0 Allergy status to penicillin; Z79.899 Other long term (current) drug therapy
CPT/HCPCS: 36415; 71010; 80053; 83605; 83735; 83880; 84100; 85025; 86140; 87040; 94640; 96374; 96375; 99285; J1940; J2930; 99284-GF